=== PATIENT | male | born 1985 | race Caucasian/White ===

== ENCOUNTER 2018-08-23 11:29 | Emergency (ER) | payer OTHER, SELFPAY ==
[2018-08-23 11:29] VITALS: BP 116/74; PULSE 73; RESP 17; TEMP 36.5; O2SAT 99; BMI 27.0
--- NOTE | 2018-08-23 11:35 | ED.VISSUMM ---
- ER Visit Summary Date of Service: 08/23/18 Chief Complaint: [] Dental pain right upper for a few days History of Present Illness: The patient is a 33 M [] past history notes he has decaying teeth to the right side of his mouth and for the last few days has had dental pain to the right upper teeth, he noticed some swelling around the cheek came in for evaluation, he has no trauma no fever no cough no stridor or drooling no difficulty with speech no past history no allergies Physical Examination: [] 116/74 afebrile General, no distress resting comfortably HEENT is mild swelling over the right cheek, his airways intact his speech is normal no stridor or drooling he has a decaying incisor cuspid tooth right upper, he has a decaying third molar right lower, the floor of the mouth gingival gumline are otherwise unremarkable he has some percussion tenderness around these teeth his airways completely normal The neck is supple no adenopathy Cardiovascular, regular rate and rhythm Lungs, clear bilateral Abdomen, soft nontender Extremities, no clubbing cyanosis or edema Neurologic, awake alert answering questions appropriately moving all 4 extremities Test Results: [] Emergency Department Course and Treatment: [] Yes all the above with the patient he understands need to be seen by dental services he has a dentist that he can see I will refer him also to the [facility], penicillin Naprosyn first dose here prescription and he will follow-up in for return for change in symptoms Treatment Plan: [] Disposition: [] Home stable Impression: [] Dental decay with dental infection This note was generated with [employer] dictation software. It may contain incorrect words, spelling, and punctuation that were not noted in review of the chart prior to signing ED Disposition - Plan for ED Patient: Chief Complaint: Dental Referrals: Care Physician,No Primary [Primary Care Provider] -
--- NOTE | 2018-08-23 11:40 | ED.DCSUM_ITS ---
- ER Visit Summary Date of Service: 08/23/18 Chief Complaint: [] Dental pain right upper for a few days History of Present Illness: The patient is a 33 M [] past history notes he has decaying teeth to the right side of his mouth and for the last few days has had dental pain to the right upper teeth, he noticed some swelling around the cheek came in for evaluation, he has no trauma no fever no cough no stridor or drooling no difficulty with speech no past history no allergies Physical Examination: [] 116/74 afebrile General, no distress resting comfortably HEENT is mild swelling over the right cheek, his airways intact his speech is normal no stridor or drooling he has a decaying incisor cuspid tooth right upper, he has a decaying third molar right lower, the floor of the mouth gingival gumline are otherwise unremarkable he has some percussion tenderness around these teeth his airways completely normal The neck is supple no adenopathy Cardiovascular, regular rate and rhythm Lungs, clear bilateral Abdomen, soft nontender Extremities, no clubbing cyanosis or edema Neurologic, awake alert answering questions appropriately moving all 4 extremities Test Results: [] Emergency Department Course and Treatment: [] Yes all the above with the patient he understands need to be seen by dental services he has a dentist that he can see I will refer him also to the [facility], penicillin Naprosyn first dose here prescription and he will follow-up in for return for change in symptoms Treatment Plan: [] Disposition: [] Home stable Impression: [] Dental decay with dental infection This note was generated with [employer] dictation software. It may contain incorrect words, spelling, and punctuation that were not noted in review of the chart p rior to signing ED Disposition - Plan for ED Patient: Chief Complaint: Dental Referrals: Care Physician,No Primary [Primary Care Provider] -
--- NOTE | 2018-08-23 11:40 | ED.DEP ---
ED Disposition - Plan for ED Patient: Chief Complaint: Dental Instructions: ED Cavity Dental Prescriptions: Naproxen [Naprosyn] 500 mg PO BID PRN #20 tab Penicillin V Potassium 500 mg PO 4X/DAY #40 tab Referrals: Care Physician,No Primary [Primary Care Provider] - Karyn Sheridan [NON-STAFF] -
[2018-08-23] MEDS: Penicillin Vk 250 MG Tablet 500 MG PO (11:49)
[2018-08-23] MEDS: Naproxen 500 MG Tablet PO (11:49)
== END 2018-08-23 12:05 | disposition home or self-care (01) ==
LOC: ED 12:01
PROVIDERS: Emergency Provider Emergency Medicine
DX: K04.7 Periapical abscess without sinus (principal); K02.9 Dental caries, unspecified
CPT/HCPCS: 99283